=== PATIENT | male | born 1975 | race Caucasian/White ===

== ENCOUNTER 2017-03-29 20:02 | Emergency (ER) | payer SELFPAY ==
[~2017-03-29] VITALS: Ht 172.7 cm; Wt 90.7 kg
[2017-03-29 21:18] VITALS: BP 148/104
[2017-03-29] MEDS ORDERED: IBUPROFEN 600 MG TABLET PO ONE ×2 (22:30→22:39)
[2017-03-29] MEDS ORDERED: ACETAMINOPHEN ES 500 MG TABLET PO ONE (22:30)
[2017-03-29] MEDS ORDERED: ACETAMINOPHEN ES 500 MG TABLET ONE (22:39)
== END 2017-03-29 23:07 | disposition home or self-care (01) ==
LOC: ER 20:09
DX: S82.142A Displaced bicondylar fracture of left tibia, initial encounter for closed fracture (principal); W01.0XXA Fall on same level from slipping, tripping and stumbling without subsequent striking against object, initial encounter; Y93.89 Activity, other specified; Y92.89 Other specified places as the place of occurrence of the external cause; Y99.0 Civilian activity done for income or pay
CPT/HCPCS: 73564-TC; A4606; Z7610